=== PATIENT | male | born 1990 | race Caucasian/White ===

== ENCOUNTER 2021-08-01 11:27 | Emergency (ER) | payer OTHER ==
[~2021-08-01] VITALS: Ht 170.2 cm; Wt 81.8 kg
[2021-08-01 11:34] VITALS: BP 117/69
[2021-08-01] MEDS ORDERED: ACETAMINOPHEN 500 MG TABLET PO ONE (15:30)
[2021-08-01 16:27] LABS: COVID AG,FIA SOURCE NASOPHARYNGEAL
== END 2021-08-01 17:33 | disposition home or self-care (01) ==
LOC: EMS 11:30
DX: U07.1 COVID-19 (principal); F12.90 Cannabis use, unspecified, uncomplicated
CPT/HCPCS: 99283